=== PATIENT | male | born 1960 | race African-American/Black ===

== ENCOUNTER 2017-12-16 14:41 | Emergency (ER) | payer SELFPAY ==
[~2017-12-16] VITALS: Ht 172.7 cm; Wt 72.0 kg
[~2017-12-16 14:41] MED LIST: IBUP-1008
[2017-12-16 14:53] VITALS: BP 139/77
== END 2017-12-16 16:52 | disposition home or self-care (01) ==
LOC: ER 14:41
DX: M50.30 Other cervical disc degeneration, unspecified cervical region (principal); R03.0 Elevated blood-pressure reading, without diagnosis of hypertension
CPT/HCPCS: 99281